=== PATIENT | female | born 1975 | race Caucasian/White ===

== ENCOUNTER 2016-12-14 12:51 | Inpatient (IN) | payer OTHER ==
[2016-12-14 15:16] VITALS: BMI 27.4
--- NOTE | 2016-12-14 16:57 | HP ---
CIWA Score - CIWA Score Nausea/Vomitin-Mild Nausea/No Vomiting Muscle Tremors: 4-Moderate,w/Arms Extend Anxiety: 4-Mod. Anxious/Guarded Agitation: 4-Moderately Restless Paroxysmal Sweats: 1-Minimal Palms Moist Orientation: 0-Oriented Tacttile Disturbances: 0-None Auditory Disturbances: 0-None Visual Disturbances: 0-None Headache: 0-None Present CIWA-Ar Total Score: 14 Admission ROS BHS - HPI Chief Complaint: withdrawal sx Allergies/Adverse Reactions: Allergies Allergy/AdvReac Type Severity Reaction Status Date / Time No Known Allergies Allergy Verified 12/14/16 16:59 History of Present Illness: 41 years old female with long history of alcohol nicotine cocaine dependence, has hypothyroid hypertension and bipolar ii in methadone program 80 mg daily is admitted to detox Exam Limitations: No Limitations - Ebola screening Have you traveled outside of the country in the last 21 days: No Have you had contact with anyone from an Ebola affected area: No Have you been sick,other than usual withdrawal symptoms: No Do you have a fever: No - Review of Systems Constitutional: Changes in sleep, Weight Stable EENT: reports: No Symptoms Reported Respiratory: reports: No Symptoms reported Cardiac: reports: No Symptoms Reported GI: reports: Nausea, Poor Fluid Intake, Vomiting, Indigestion, Abdominal cramping : reports: No Symptoms Reported Musculoskeletal: reports: Back Pain (since 2016) Integumentary: reports: No Symptoms Reported Neuro: reports: Tremors Endocrine: reports: Unexplained Weight Gain Hematology: reports: No Symptoms Reported Psychiatric: reports: Judgement Intact, Orientated x3, Anxious, Depressed Other Systems: Reviewed and Negative Patient History - Patient Medical History Hx Anemia: No Hx Asthma: No Hx Chronic Obstructive Pulmonary Disease (COPD): No Hx Cancer: No Hx Cardiac Disorders: No Hx Congestive Heart Failure: No Hx Hypertension: Yes Hx Hypercholesterolemia: No Hx Pacemaker: No HX Cerebrovascular Accident: No Hx Seizures: No Hx Dementia: No Hx Diabetes: No Hx Gastrointestinal Disorders: Yes Hx Liver Disease: No Hx Genitourinary Disorders: No Hx Sexually Transmitted Disorders: No Hx Renal Disease (ESRD): No Hx Thyroid Disease: Yes Hx Human Immunodeficiency Virus (HIV): No Hx Hepatitis C: Yes (treated) Hx Depression: No Hx Suicide Attempt: No Hx Bipolar Disorder: Yes Hx Schizophrenia: No - Patient Surgical History Past Surgical History: Yes Hx Neurologic Surgery: No Hx Cataract Extraction: No Hx Cardiac Surgery: No Hx Lung Surgery: No Hx Breast Surgery: No Hx Breast Biopsy: No Hx Abdominal Surgery: No Hx Appendectomy: No Hx Cholecystectomy: No Hx Genitourinary Surgery: No Hx Section: Yes (2001, 2002, 2003, 2005) Hx Orthopedic Surgery: No Hx Hysterectomy: No Anesthesia Reaction: No - PPD History Previous Implant?: Yes Documented Results: Negative w/proof Implanted On Prior [facility] Admission?: No PPD to be Administered?: Yes - Reproductive History Patient is a Female of Child Bearing Age (11 -55 yrs old): Yes Last Menstrual Period: 12/14/13 Patient : No - Smoking Cessation Smoking history: Current every day smoker Have you smoked in the past 12 months: Yes Aproximately how many cigarettes per day: 10 Cigars Per Day: 0 Hx Chewing Tobacco Use: No Initiated information on smoking cessation: Yes 'Breaking Loose' booklet given: 12/14/16 - Substance & Tx. History Hx Alcohol Use: Yes Hx Substance Use: Yes Substance Use Type: Alcohol, Cocaine, Heroin Hx Substance Use Treatment: Yes (2014) - Substances Abused Alcohol Route: Oral Frequency: Daily Amount used: 18mgf21 +pint volka Age of first use: 17 Date of Last Use: 12/13/16 Family Disease History - Family Disease History Family Disease History: Diabetes: Mother, Other: Father (no contact), Brother ( no brother) Admission Physical Exam BHS - Vital Signs Vital Signs: Vital Signs - 24 hr 12/14/16 15:03 Temperature 95.5 F L Pulse Rate 80 Respiratory 20 Rate Blood Pressure 117/65 - Physical General Appearance: Yes: Nourished, Appropriately Dressed, Mild Distress, Tremorous, Irritable, Sweating, Anxious HEENTM: Yes: Hearing grossly Normal, Normal ENT Inspection, Normocephalic, Normal Voice Respiratory: Yes: Chest Non-Tender, Lungs Clear, Normal Breath Sounds, No Respiratory Distress, No Accessory Muscle Use Neck: Yes: Supple, Trachea in good position Breast: Yes: Breasts Symetrical Cardiology: Yes: Regular Rhythm, Regular Rate, S1, S2 Abdominal: Yes: Non Tender, Soft, Increased Bowel Sounds Genitourinary: Yes: Within Normal Limits Back: Yes: Normal Inspection, Other (chronic back pain) Musculoskeletal: Yes: full range of Motion, Gait Steady, Back pain Extremities: Yes: Normal Inspection, Normal Range of Motion, Non-Tender, Tremors Neurological: Yes: Fully Oriented, Alert, Motor Strength 5/5, Normal Response, Depressed Affect Integumentary: Yes: Warm Lymphatic: Yes: Within Normal Limits - Diagnostic (1) Alcohol dependence with uncomplicated withdrawal Current Visit: Yes Status: Acute (2) Cocaine dependence, uncomplicated Current Visit: Yes Status: Chronic (3) Hypertension Current Visit: Yes Status: Chronic Qualifiers: Hypertension type: essential hypertension Qualified Code(s): I10 - Essential (primary) hypertension; I10 - Essential (primary) hypertension; I10 - Essential (primary) hypertension (4) Hypothyroid Current Visit: Yes Status: Chronic Qualifiers: Hypothyroidism type: acquired Qualified Code(s): E03.9 - Hypothyroidism, unspecified; E03.9 - Hypothyroidism, unspecified; E03.9 - Hypothyroidism, unspecified (5) GERD (gastroesophageal reflux disease) Current Visit: Yes Status: Chronic Qualifiers: Esophagitis presence: without esophagitis Qualified Code(s): K21.9 - Gastro-esophageal reflux disease without esophagitis; K21.9 - Gastro- esophageal reflux disease without esophagitis; K21.9 - Gastro-esophageal reflux disease without esophagitis (6) Chronic back pain Current Visit: Yes Status: Chronic Qualifiers: Back pain location: low back pain Back pain laterality: bilateral Sciatica presence: without sciatica Qualified Code(s): M54.5 - Low back pain; M54.5 - Low back pain; G89.29 - Other chronic pain; G89.29 - Other chronic pain (7) Bipolar II disorder Current Visit: Yes Status: Suspected (8) Hepatitis C carrier Current Visit: Yes Status: Resolved Cleared for Admission [facility] - Detox or Rehab [facility] Level of Care: Medically Managed Detox Regimen/Protocol: Librium [facility] Breath Alcohol Content Breath Alcohol Content: 0 Urine Pregancy Test - Result Urine Test Results: Negative- NO Line Present Urine Drug Screen - Results Drug Screen Negative: No Urine Drug Screen Results: RYAN-Cocaine, MTD-Methadone, TCA-Tricyclic Antidepress
[2016-12-14] MEDS ORDERED: guaiFENesin/D-METHORPHAN HB 10 ML UNIT-DOSE CUPS PO PRN (17:07)
[2016-12-14] MEDS ORDERED: MAGNESIUM CITRATE 300 ML BOTTLE PO PRN (17:07)
[2016-12-14] MEDS ORDERED: MAG HYDROX/AL HYDROX/SIMETH 30 ML UNIT-DOSE CUP PO PRN (17:07)
[2016-12-14] MEDS ORDERED: MAGNESIUM HYDROX 2400MG/30ML ORAL SUSPENSION 30 ML CUP PO PRN (17:07)
[2016-12-14] MEDS ORDERED: ACETAMINOPHEN 325 MG TABLET (FP) PO PRN (17:07)
[2016-12-14] MEDS ORDERED: P-EPHED 60MG/TRIPROLIDI 2.5MG TABLET PO PRN (17:07)
[2016-12-14] MEDS ORDERED: NICOTINE POLACRILEX 2 MG GUM BC PRN (17:07)
[2016-12-14] MEDS ORDERED: diphenhydrAMINE HCL 50 MG CAPSULE PO PRN (17:07)
[2016-12-14] MEDS ORDERED: MENTHOL/PHENOL 1 EACH UD MM PRN (17:07)
[2016-12-14] MEDS ORDERED: LOPERAMIDE HCL 2 MG CAPSULE PO PRN (17:07)
[2016-12-14] MEDS: chlordiazePOXIDE HCL 25 MG CAPSULE PO PRN (20:09)
[2016-12-14 21:18] LABS: URINE APPEARANCE SLCLOUDY; URINE BILIRUBIN NEGATIVE (NEGATIVE); URINE BLOOD NEGATIVE (NEGATIVE); URINE COLOR YELLOW; URINE GLUCOSE (UA) NEGATIVE (NEGATIVE); URINE KETONE TRACE (NEGATIVE); URINE NITRITE NEGATIVE (NEGATIVE); URINE UROBILINOGEN NEGATIVE mg/dL (0.2-1.0)
[2016-12-14 21:24] LABS: URINE PROTEIN 1+ (NEGATIVE)
[2016-12-14 21:28] LABS: URINE HYALINE CAST 21 /lpf; URINE MUCUS FEW; URINE RBC <1 /hpf (0-3); URINE WBC 1 /hpf (3-5)
[2016-12-14 22:23] LABS: URINE LEUK ESTERASE Negative (NEGATIVE)
[2016-12-14] MEDS: LIDOCAINE PATCH REMOVAL MC SCH (23:55)
[2016-12-14] MEDS: chlordiazePOXIDE HCL 25 MG CAPSULE PO SCH (23:55)
[2016-12-14] MEDS: THIAMINE HCL 100 MG TABLET (FP) PO SCH (23:56)
[2016-12-14] MEDS: RANITIDINE HCL 150 MG TABLET (FP) PO SCH (23:56)
[2016-12-15] MEDS: chlordiazePOXIDE HCL 25 MG CAPSULE PO SCH ×4 (05:42→22:41)
--- NOTE | 2016-12-15 07:35 | CONSULT ---
[facility] Psychiatric Consult - Data Date of interview: 12/15/16 Admission source: [facility] Identifying data: This is 41 years old female with psychiatric hospitalization history intoxicated wioth: Alcohol, Cocaine, Methadone Substance Abuse History: Urine Drug Screen Results: RYNA-Cocaine, MTD-Methadone, TCA-Tricyclic AntidepressSmoking history: Current every day smoker. Have you smoked in the past 12 months: Yes. Aproximately how many cigarettes per day: 10. Cigars Per Day: 0. Hx Chewing Tobacco Use: No. Initiated information on smoking cessation: Yes. 'Breaking Loose' booklet given: 12/14/16. - Substance & Tx. History. Hx Alcohol Use: Yes. Hx Substance Use: Yes. Substance Use Type : Alcohol, Cocaine, Heroin. Hx Substance Use Treatment: Yes (2014). - Substances Abused. Alcohol. Route: Oral. Frequency: Daily. Amount used: [id number] +pint volka. Age of first use: 17. Date of Last Use: 12/13/16 Medical History: LBP, GERD, HTN, Hypothyroiditis, HepC+ Psychiatric History: Patint reports history of depression and anxiety, reports unclear psychoiatric admsision on 2015 at [facility], reports no medications taking prior to admission Physical/Sexual Abuse/Trauma History: Denies Additional Comment: Drug Screen Negative: No. Urine Drug Screen Results: RYAN- Cocaine, MTD-Methadone, TCA-Tricyclic Antidepress Mental Status Exam - Mental Status Exam Alert and Oriented to: Person Cognitive Function: Fair Patient Appearance: Unkempt Mood: Sad Affect: Flat Patient Behavior: Sedated Speech Pattern: Delayed Voice Loudness: Mildly Soft/Quiet Thought Process: Circumstantial Thought Disorder: Being Controlled Hallucinations: Denies Suicidal Ideation: Denies Homicidal Ideation: Denies Insight/Judgement: Fair Sleep: Difficulty falling asleep Appetite: Weight loss Muscle strength/Tone: Normal Gait/Station: Shuffling Additional Comments: Observation. Detox Unit Care Protocol
[2016-12-15] MEDS: LEVOTHYROXINE NA 100 MCG TABLET (FP) PO SCH (07:41)
[2016-12-15] MEDS ORDERED: METHADONE HCL 40 MG DISPERSABLE TABLET PO ONE (08:28)
[2016-12-15 09:57] LABS: MCHC 33.3 g/dl (32.0-36.0); MEAN CELL VOLUME 93.2 fl (80-96); MEAN PLT VOLUME 8.8 fl (7.5-11.1); PLATELET COUNT 187 K/MM3 (134-434); RDW 14.2 % (11.6-15.6); WHITE BLOOD COUNT 3.5 K/mm3 (4.0-10.0)
[2016-12-15 10:07] LABS: ALBUMIN 3.4 g/dl (3.4-5.0); ANION GAP 7 (8-16); CALCIUM 8.4 mg/dL (8.5-10.1); CO2 28 mmol/L (21-32); GLUCOSE,RANDOM 86 mg/dL (74-106)
[2016-12-15 10:20] LABS: ALK PHOS 80 U/L (45-117); BILIRUBIN,TOTAL 0.4 mg/dL (0.2-1.0); CREATININE 1.1 mg/dL (0.55-1.02); SGOT/AST 13 U/L (15-37); SGPT/ALT 10 U/L (12-78); TOT PROT 7.2 g/dl (6.4-8.2)
[2016-12-15] MEDS: HYDROCHLOROTHIAZIDE 25 MG TABLET (FP) PO SCH (10:28)
[2016-12-15] MEDS: RANITIDINE HCL 150 MG TABLET (FP) PO SCH ×2 (10:29→22:41)
[2016-12-15] MEDS: PRENATAL VITAMINS W/ FOLIC ACID TABLET (FP) PO SCH (10:29)
[2016-12-15] MEDS: NICOTINE 14 MG/24 HOURS TOPICAL PATCH TD SCH (10:29)
[2016-12-15] MEDS: LIDOCAINE 5% TOPICAL PATCH TP SCH (10:33)
[2016-12-15] MEDS: CYCLOBENZAPRINE HCL 10 MG TABLET (FP) PO PRN (10:56)
--- NOTE | 2016-12-15 11:23 | PN ---
S CIWA - CIWA Score Nausea/Vomitin Muscle Tremors: 3 Anxiety: 3 Agitation: 3 Paroxysmal Sweats: 1-Minimal Palms Moist Orientation: 0-Oriented Tacttile Disturbances: 1-Very Mild Itch/Numbness Auditory Disturbances: 1-Very Mild Visual Disturbances: 0-None Headache: 2-Mild CIWA-Ar Total Score: 17 BHS Progress Note (SOAP) Subjective: alert,irritable,anxious,interrupted sleep,tremor,pain in the body and back Objective: 12/15/16 11:22 Vital Signs Temperature 95.9 F L 12/15/16 10:00 Pulse Rate 87 12/15/16 10:00 Respiratory Rate 16 12/15/16 10:00 Blood Pressure 115/78 12/15/16 10:00 O2 Sat by Pulse Oximetry (%) ekg nsr,normal ecg Laboratory Last Values WBC 3.5 K/mm3 (4.0-10.0) L 12/15/16 07:15 RBC 4.07 M/mm3 (3.60-5.2) 12/15/16 07:15 Hgb 12.6 GM/dL (10.7-15.3) 12/15/16 07:15 Hct 37.9 % (32.4-45.2) 12/15/16 07:15 MCV 93.2 fl (80-96) 12/15/16 07:15 MCH 31.0 pg (25.7-33.7) 12/15/16 07:15 MCHC 33.3 g/dl (32.0-36.0) 12/15/16 07:15 RDW 14.2 % (11.6-15.6) 12/15/16 07:15 Plt Count 187 K/MM3 (134-434) 12/15/16 07:15 MPV 8.8 fl (7.5-11.1) 12/15/16 07:15 Sodium 141 mmol/L (136-145) 12/15/16 07:15 Potassium 3.8 mmol/L (3.5-5.1) 12/15/16 07:15 Chloride 106 mmol/L (98-107) 12/15/16 07:15 Carbon Dioxide 28 mmol/L (21-32) 12/15/16 07:15 Anion Gap 7 (8-16) L 12/15/16 07:15 BUN 17 mg/dL (7-18) 12/15/16 07:15 Creatinine 1.1 mg/dL (0.55-1.02) H 12/15/16 07:15 Creat Clearance w eGFR 54.21 (>60) 12/15/16 07:15 Random Glucose 86 mg/dL (74-106) 12/15/16 07:15 Calcium 8.4 mg/dL (8.5-10.1) L 12/15/16 07:15 Total Bilirubin 0.4 mg/dL (0.2-1.0) 12/15/16 07:15 AST 13 U/L (15-37) L 12/15/16 07:15 ALT 10 U/L (12-78) L 12/15/16 07:15 Alkaline Phosphatase 80 U/L (45-117) 12/15/16 07:15 Total Protein 7.2 g/dl (6.4-8.2) 12/15/16 07:15 Albumin 3.4 g/dl (3.4-5.0) 12/15/16 07:15 TSH 17.40 uIU/ml (0.358-3.74) H 12/15/16 07:15 Urine Color Yellow 12/14/16 20:45 Urine Appearance Slcloudy 12/14/16 20:45 Urine pH 5.0 (5.0-8.0) 12/14/16 20:45 Ur Specific [place] 1.020 (1.005-1.025) 12/14/16 20:45 Urine Protein 1+ (NEGATIVE) H 12/14/16 20:45 Urine Glucose (UA) Negative (NEGATIVE) 12/14/16 20:45 Urine Ketones Trace (NEGATIVE) H 12/14/16 20:45 Urine Blood Negative (NEGATIVE) 12/14/16 20:45 Urine Nitrite Negative (NEGATIVE) 12/14/16 20:45 Urine Bilirubin Negative (NEGATIVE) 12/14/16 20:45 Urine Urobilinogen Negative mg/dL (0.2-1.0) 12/14/16 20:45 Ur Leukocyte Esterase Negative (NEGATIVE) 12/14/16 20:45 Urine RBC <1 /hpf (0-3) 12/14/16 20:45 Urine WBC 1 /hpf (3-5) 12/14/16 20:45 Ur Epithelial Cells Rare /hpf (FEW) 12/14/16 20:45 Hyaline Casts 21 /lpf 12/14/16 20:45 Urine Mucus Few 12/14/16 20:45 RPR Titer Nonreactive (NONREACTIVE) 12/15/16 07:15 Assessment: 12/15/16 11:23 withdrawal symptom Plan: continue detox
--- NOTE | 2016-12-15 13:24 | EKG ---
Test Reason : Blood Pressure : / mmHG Vent. Rate : 068 BPM Atrial Rate : 068 BPM P-R Int : 184 ms QRS Dur : 092 ms QT Int : 434 ms P-R-T Axes : 067 056 084 degrees QTc Int : 461 ms NORMAL SINUS RHYTHM NORMAL ECG NO PREVIOUS ECGS AVAILABLE Confirmed by TIN CAMARGO, ARLENE ([id number]) on 12/15/2016 1:23:42 PM Referred By: Confirmed By:ARLENE CASTLE MD
[2016-12-15] MEDS: chlordiazePOXIDE HCL 25 MG CAPSULE PO PRN (20:17)
[2016-12-15] MEDS: THIAMINE HCL 100 MG TABLET (FP) PO SCH (22:41)
[2016-12-15] MEDS: LIDOCAINE PATCH REMOVAL MC SCH (22:55)
[2016-12-16] MEDS: chlordiazePOXIDE HCL 25 MG CAPSULE PO SCH ×3 (06:21→17:55)
[2016-12-16] MEDS: LEVOTHYROXINE NA 100 MCG TABLET (FP) PO SCH (06:22)
[2016-12-16] MEDS: METHADONE HCL 40 MG DISPERSABLE TABLET PO SCH (06:22)
[2016-12-16] MEDS: BACLOFEN 10 MG TABLET (FP) PO PRN ×2 (06:24→22:48)
[2016-12-16] MEDS ORDERED: PANTOPRAZOLE 40 MG TABLET (FP) PO SCH (10:00)
--- NOTE | 2016-12-16 10:11 | PN ---
S CIWA - CIWA Score Nausea/Vomitin Muscle Tremors: 3 Anxiety: 3 Agitation: 3 Paroxysmal Sweats: 1-Minimal Palms Moist Orientation: 0-Oriented Tacttile Disturbances: 1-Very Mild Itch/Numbness Auditory Disturbances: 1-Very Mild Visual Disturbances: 0-None Headache: 2-Mild CIWA-Ar Total Score: 17 BHS Progress Note (SOAP) Subjective: alert,irritable,anxious,interrupted sleep,tremor,pain in the body Objective: 12/16/16 10:09 Vital Signs Temperature 97.0 F L 12/16/16 09:55 Pulse Rate 80 12/16/16 09:55 Respiratory Rate 18 12/16/16 09:55 Blood Pressure 125/89 12/16/16 09:55 O2 Sat by Pulse Oximetry (%) 12/16/16 10:09 Laboratory Last Values WBC 3.5 K/mm3 (4.0-10.0) L 12/15/16 07:15 RBC 4.07 M/mm3 (3.60-5.2) 12/15/16 07:15 Hgb 12.6 GM/dL (10.7-15.3) 12/15/16 07:15 Hct 37.9 % (32.4-45.2) 12/15/16 07:15 MCV 93.2 fl (80-96) 12/15/16 07:15 MCH 31.0 pg (25.7-33.7) 12/15/16 07:15 MCHC 33.3 g/dl (32.0-36.0) 12/15/16 07:15 RDW 14.2 % (11.6-15.6) 12/15/16 07:15 Plt Count 187 K/MM3 (134-434) 12/15/16 07:15 MPV 8.8 fl (7.5-11.1) 12/15/16 07:15 Sodium 141 mmol/L (136-145) 12/15/16 07:15 Potassium 3.8 mmol/L (3.5-5.1) 12/15/16 07:15 Chloride 106 mmol/L (98-107) 12/15/16 07:15 Carbon Dioxide 28 mmol/L (21-32) 12/15/16 07:15 Anion Gap 7 (8-16) L 12/15/16 07:15 BUN 17 mg/dL (7-18) 12/15/16 07:15 Creatinine 1.1 mg/dL (0.55-1.02) H 12/15/16 07:15 Creat Clearance w eGFR 54.21 (>60) 12/15/16 07:15 Random Glucose 86 mg/dL (74-106) 12/15/16 07:15 Calcium 8.4 mg/dL (8.5-10.1) L 12/15/16 07:15 Total Bilirubin 0.4 mg/dL (0.2-1.0) 12/15/16 07:15 AST 13 U/L (15-37) L 12/15/16 07:15 ALT 10 U/L (12-78) L 12/15/16 07:15 Alkaline Phosphatase 80 U/L (45-117) 12/15/16 07:15 Total Protein 7.2 g/dl (6.4-8.2) 12/15/16 07:15 Albumin 3.4 g/dl (3.4-5.0) 12/15/16 07:15 TSH 17.40 uIU/ml (0.358-3.74) H 12/15/16 07:15 Urine Color Yellow 12/14/16 20:45 Urine Appearance Slcloudy 12/14/16 20:45 Urine pH 5.0 (5.0-8.0) 12/14/16 20:45 Ur Specific [place] 1.020 (1.005-1.025) 12/14/16 20:45 Urine Protein 1+ (NEGATIVE) H 12/14/16 20:45 Urine Glucose (UA) Negative (NEGATIVE) 12/14/16 20:45 Urine Ketones Trace (NEGATIVE) H 12/14/16 20:45 Urine Blood Negative (NEGATIVE) 12/14/16 20:45 Urine Nitrite Negative (NEGATIVE) 12/14/16 20:45 Urine Bilirubin Negative (NEGATIVE) 12/14/16 20:45 Urine Urobilinogen Negative mg/dL (0.2-1.0) 12/14/16 20:45 Ur Leukocyte Esterase Negative (NEGATIVE) 12/14/16 20:45 Urine RBC <1 /hpf (0-3) 12/14/16 20:45 Urine WBC 1 /hpf (3-5) 12/14/16 20:45 Ur Epithelial Cells Rare /hpf (FEW) 12/14/16 20:45 Hyaline Casts 21 /lpf 12/14/16 20:45 Urine Mucus Few 12/14/16 20:45 RPR Titer Nonreactive (NONREACTIVE) 12/15/16 07:15 Hepatitis C Antibody >11.0 s/co ratio (0.0-0.9) H 12/15/16 07:15 patient had hepatitis c treated with [facility] 2 years ago history Assessment: 12/16/16 10:11 withdrawal symptom Plan: continue detox
[2016-12-16] MEDS: CYCLOBENZAPRINE HCL 10 MG TABLET (FP) PO PRN (10:25)
[2016-12-16] MEDS: HYDROCHLOROTHIAZIDE 25 MG TABLET (FP) PO SCH (10:25)
[2016-12-16] MEDS: PRENATAL VITAMINS W/ FOLIC ACID TABLET (FP) PO SCH (10:25)
[2016-12-16] MEDS: RANITIDINE HCL 150 MG TABLET (FP) PO SCH ×2 (10:25→22:44)
[2016-12-16] MEDS: LISINOPRIL 20 MG TABLET (FP) PO SCH (10:27)
[2016-12-16] MEDS: PROPRANOLOL HCL 20 MG TABLET PO SCH ×2 (10:27→22:45)
[2016-12-16] MEDS: NICOTINE 14 MG/24 HOURS TOPICAL PATCH TD SCH (13:25)
[2016-12-16] MEDS: LIDOCAINE 5% TOPICAL PATCH TP SCH (13:25)
[2016-12-16] MEDS: GABAPENTIN 300 MG CAPSULE (FP) PO SCH ×2 (15:18→22:44)
[2016-12-16] MEDS: THIAMINE HCL 100 MG TABLET (FP) PO SCH (22:44)
[2016-12-16] MEDS: LIDOCAINE PATCH REMOVAL MC SCH (22:45)
[2016-12-16] MEDS: chlordiazePOXIDE 5 MG CAPSULE PO SCH (23:47)
[2016-12-17] MEDS: GABAPENTIN 300 MG CAPSULE (FP) PO SCH ×3 (06:18→23:05)
[2016-12-17] MEDS: LEVOTHYROXINE NA 100 MCG TABLET (FP) PO SCH (06:18)
[2016-12-17] MEDS: CYCLOBENZAPRINE HCL 10 MG TABLET (FP) PO PRN (06:18)
[2016-12-17] MEDS: METHADONE HCL 40 MG DISPERSABLE TABLET PO SCH (06:18)
[2016-12-17] MEDS: chlordiazePOXIDE 5 MG CAPSULE PO SCH ×3 (06:18→16:41)
[2016-12-17] MEDS ORDERED: NALOXONE HCL 0.4 MG/ML VIAL IM ONE ×3 (09:20→13:18)
--- NOTE | 2016-12-17 09:47 | PN ---
S Progress Note (SOAP) Subjective: PATIENT HAS ALTER MENTAL STATUS,PUPIL CONSTRICT,NO RESPOND TO VERBAL STIMULI, SPONTANEOU LABOUR BEATHING NARCAN 0.4 MG IM GIVEN RESPONDED ALERT,SITING UP,AND ABLE TO AMBULATE REFUSED THE SECOND DOSE OF NARCAN Objective: 12/17/16 10:25 BP 139/87,076,R20 Assessment: 12/17/16 10:26 ANXIOUS Plan: CLOSE MONITORING
--- NOTE | 2016-12-17 13:41 | PN ---
[facility] Progress Note Note: patient has alter mental status, bp 115/73.p77r 20,t 98 will give narcan 0.4 mg im oxygen by nasal canula 4 l min hold medication close monitoring with vital signs monitoring patient is alert,oriented after narcan
[2016-12-17] MEDS: PRENATAL VITAMINS W/ FOLIC ACID TABLET (FP) PO SCH (14:04)
[2016-12-17] MEDS: LISINOPRIL 20 MG TABLET (FP) PO SCH (14:05)
[2016-12-17] MEDS: PROPRANOLOL HCL 20 MG TABLET PO SCH ×2 (14:05→23:02)
[2016-12-17] MEDS: HYDROCHLOROTHIAZIDE 25 MG TABLET (FP) PO SCH (14:06)
[2016-12-17] MEDS: NICOTINE 14 MG/24 HOURS TOPICAL PATCH TD SCH (14:27)
[2016-12-17] MEDS: LIDOCAINE 5% TOPICAL PATCH TP SCH (14:27)
[2016-12-17] MEDS: RANITIDINE HCL 150 MG TABLET (FP) PO SCH ×2 (14:28→23:06)
[2016-12-17] MEDS: LIDOCAINE PATCH REMOVAL MC SCH (23:05)
[2016-12-17] MEDS: chlordiazePOXIDE HCL 10 MG CAPSULE PO SCH (23:05)
[2016-12-17] MEDS: THIAMINE HCL 100 MG TABLET (FP) PO SCH (23:06)
[2016-12-18] MEDS: chlordiazePOXIDE HCL 10 MG CAPSULE PO SCH (05:55)
[2016-12-18 06:07] VITALS: BP 126/80; PULSE 68; TEMP 97.9
[2016-12-18] MEDS: METHADONE HCL 40 MG DISPERSABLE TABLET PO SCH (07:25)
[2016-12-18] MEDS: GABAPENTIN 300 MG CAPSULE (FP) PO SCH (07:25)
[2016-12-18] MEDS: LEVOTHYROXINE NA 100 MCG TABLET (FP) PO SCH (07:25)
--- NOTE | 2016-12-18 08:15 | DS ---
[facility] Detox Discharge Summary Admission Date: 12/14/16 Discharge Date: 12/18/16 - History Present History: Alcohol Dependence, Cocaine Dependence, MMTP Additional Comments: FOLLOW UP WITH AFTER CARE PROGRAM ARRANGEMENT Pertinent Past History: HYPERTENSION HYPOTHYROIDISM GERD CHRONIC LOW BACK PAIN HEPATITIS C TREATED MMTP BIPOLAR DISORDER - Physical Exam Results Vital Signs: Vital Signs Temperature 97.9 F 12/18/16 06:00 Pulse Rate 68 12/18/16 06:00 Respiratory Rate 18 12/18/16 06:00 Blood Pressure 126/80 12/18/16 06:00 O2 Sat by Pulse Oximetry (%) - Treatment Hospital Course: Detox Protocol Followed, Detoxed Safely, Responded well, Discharged Condition Good, Rehab Referral Accepted Patient has Accepted a Rehab Referral to: [facility] - Medication Discharge Medications: Ambulatory Orders Hydrochlorothiazide [Hctz -] 25 mg PO DAILY 12/14/16 Levothyroxine [Synthroid -] 200 mcg PO DAILY 12/14/16 - Diagnosis (1) Alcohol dependence with uncomplicated withdrawal Status: Acute (2) Chronic back pain Status: Chronic Qualifiers: Back pain location: low back pain Back pain laterality: bilateral Sciatica presence: without sciatica Qualified Code(s): M54.5 - Low back pain; M54.5 - Low back pain; G89.29 - Other chronic pain; G89.29 - Other chronic pain (3) Cocaine dependence, uncomplicated Status: Chronic (4) GERD (gastroesophageal reflux disease) Status: Chronic Qualifiers: Esophagitis presence: without esophagitis Qualified Code(s): K21.9 - Gastro-esophageal reflux disease without esophagitis; K21.9 - Gastro- esophageal reflux disease without esophagitis; K21.9 - Gastro-esophageal reflux disease without esophagitis (5) Hypertension Status: Chronic Qualifiers: Hypertension type: essential hypertension Qualified Code(s): I10 - Essential (primary) hypertension; I10 - Essential (primary) hypertension; I10 - Essential (primary) hypertension (6) Hypothyroid Status: Chronic Qualifiers: Hypothyroidism type: acquired Qualified Code(s): E03.9 - Hypothyroidism, unspecified; E03.9 - Hypothyroidism, unspecified; E03.9 - Hypothyroidism, unspecified (7) Bipolar II disorder Status: Suspected (8) Hepatitis C Status: Acute - AMA Did Patient Leave Against Medical Advice: No
== END 2016-12-18 07:34 | disposition home or self-care (01) | DRG 774 ==
LOC: YASAS 12:51 → Y6N 17:32
PROVIDERS: ADMIT Internal Medicine; ATTEND Internal Medicine
PROC: HZ2ZZZZ Detoxification Services for Substance Abuse Treatment (ICD-10-PCS; principal; 2016-12-14)
DX: F10.230 Alcohol dependence with withdrawal, uncomplicated (principal); F14.20 Cocaine dependence, uncomplicated; F31.81 Bipolar II disorder; I10 Essential (primary) hypertension; E03.9 Hypothyroidism, unspecified; B18.2 Chronic viral hepatitis C; M54.5 Low back pain; G89.29 Other chronic pain
CPT/HCPCS: 36415; 80053; 81003; 81015; 84443; 85027; 86593; 86803; 87522; 93005; 93010; J0475

== ENCOUNTER 2021-05-29 14:55 | Inpatient (IN) | payer OTHER ==
[2021-05-29 18:54] VITALS: BMI 33.6
[2021-05-29] MEDS ORDERED: IBUPROFEN 400 MG TABLET (FP) PO PRN (20:41)
[2021-05-29] MEDS ORDERED: MAGNESIUM CITRATE 300 ML BOTTLE PO PRN (20:41)
[2021-05-29] MEDS ORDERED: BISMUTH SUBSALICYLATE 524 MG/30 ML PO PRN (20:41)
[2021-05-29] MEDS ORDERED: ACETAMINOPHEN 325 MG TABLET (FP) PO PRN ×2 (20:41)
[2021-05-29] MEDS ORDERED: LOPERAMIDE HCL 2 MG CAPSULE PO PRN (20:41)
[2021-05-29] MEDS ORDERED: DICYCLOMINE HCL 10 MG CAPSULE PO PRN (20:41)
[2021-05-29] MEDS ORDERED: BENZOCAINE/MENTHOL (CHLORASEPTIC ) LOZENGE MM PRN (20:41)
[2021-05-29] MEDS ORDERED: ONDANSETRON *ODT* 4 MG TABLET SL PRN (20:41)
[2021-05-29] MEDS ORDERED: MAGNESIUM HYDROX 2400MG/30ML ORAL SUSPENSION 30 ML CUP PO PRN (20:41)
[2021-05-29] MEDS ORDERED: chlordiazePOXIDE HCL 25 MG CAPSULE PO PRN (20:41)
[2021-05-29] MEDS ORDERED: NICOTINE POLACRILEX 2 MG GUM BUC PRN (20:41)
[2021-05-29] MEDS ORDERED: MAG HYDROX/AL HYDROX/SIMETH 30 ML UNIT-DOSE CUP PO PRN (20:41)
[2021-05-29] MEDS ORDERED: ALBUTEROL SO4 HFA INHALER IH PRN (22:00)
[2021-05-29] MEDS ORDERED: chlordiazePOXIDE HCL 25 MG CAPSULE ONE (23:18)
[2021-05-29] MEDS: MELATONIN 5 MG TABLETS PO SCH (23:20)
[2021-05-29] MEDS: chlordiazePOXIDE HCL 25 MG CAPSULE PO SCH (23:21)
[2021-05-29] MEDS: THIAMINE HCL 100 MG TABLET (FP) PO SCH (23:22)
[2021-05-29] MEDS: GABAPENTIN 300 MG CAPSULE PO SCH (23:29)
[2021-05-29] MEDS: LIDOCAINE PATCH REMOVAL MC SCH (23:29)
[2021-05-30] MEDS: CEPHALEXIN MONOHYDRATE 500 MG CAPSULE (UD) PO SCH ×4 (01:00→18:26)
[2021-05-30] MEDS: GABAPENTIN 300 MG CAPSULE PO SCH ×3 (06:00→22:18)
[2021-05-30] MEDS: chlordiazePOXIDE HCL 25 MG CAPSULE PO SCH ×4 (06:00→22:19)
[2021-05-30] MEDS ORDERED: PATIENT'S OWN MEDICATION (NON-FORMULARY) (Lisinopril/Hydrochlorothiazide [Lisinopril-Hctz PO SCH (10:00)
[2021-05-30] MEDS ORDERED: methaDONE HCL 10 MG TABLET PO SCH (10:00)
[2021-05-30] MEDS: LIDOCAINE 5% TOPICAL PATCH TP SCH (10:18)
[2021-05-30] MEDS: CLOPIDOGREL BISULFATE 75 MG TABLET (FP) PO SCH (10:19)
[2021-05-30] MEDS: PRENATAL VITAMINS W/ FOLIC ACID TABLET (FP) PO SCH (10:19)
[2021-05-30] MEDS ORDERED: PNEUMOC 13-VAL CONJ-DIP CRM/PF 0.5 ML DISP.SYRIN IM ONE (12:00)
[2021-05-30] MEDS: LEVOTHYROXINE NA 200 MCG TABLET PO SCH (13:10)
[2021-05-30] MEDS: CALCIUM 500MG/VIT-D 200 UNITS COMBO TABLET (FP) PO SCH (13:11)
[2021-05-30] MEDS: PARoxetine HCL 10 MG TABLET PO SCH (13:11)
[2021-05-30 13:19] LABS: CALCIUM 8.7 mg/dL (8.5-10.1)
[2021-05-30 13:20] LABS: ALBUMIN 3.1 g/dl (3.4-5.0); BLOOD UREA NITROGEN 19.5 mg/dL (7-18)
[2021-05-30] MEDS ORDERED: methaDONE HCL 10 MG TABLET ONE (13:22)
[2021-05-30] MEDS ORDERED: methaDONE HCL 40 MG DISPERSABLE TABLET ONE (13:23)
[2021-05-30 13:24] LABS: TOT PROT 6.7 g/dl (6.4-8.2)
[2021-05-30] MEDS: methaDONE 80 MG, methaDONE 10 MG PO SCH (13:25)
[2021-05-30 13:30] LABS: BILIRUBIN,TOTAL 0.2 mg/dL (0.2-1)
[2021-05-30 13:36] LABS: HEMATOCRIT 40.3 % (32.4-45.2); HEMOGLOBIN 13.3 GM/dL (10.7-15.3); MCH 31.3 pg (25.7-33.7); MCHC 33.1 g/dl (32.0-36.0); MEAN CELL VOLUME 94.8 fl (80-96); PLATELET COUNT 182 10^3/uL (134-434); RBC 4.26 M/mm3 (3.60-5.2); RDW 14.7 % (11.6-15.6); WHITE BLOOD COUNT 4.1 K/mm3 (4.0-10.0)
[2021-05-30] MEDS: NICOTINE 10 MG CARTRIDGE (INHALER) IH PRN (13:39)
[2021-05-30] MEDS: THIAMINE HCL 100 MG TABLET (FP) PO SCH (22:19)
[2021-05-30] MEDS: MELATONIN 5 MG TABLETS PO SCH (22:19)
[2021-05-30] MEDS: LURASIDONE HCL 20 MG TABLET PO SCH (22:21)
[2021-05-30] MEDS: LIDOCAINE PATCH REMOVAL MC SCH (22:57)
[2021-05-31] MEDS: CEPHALEXIN MONOHYDRATE 500 MG CAPSULE (UD) PO SCH ×5 (00:27→18:03)
[2021-05-31] MEDS ORDERED: methaDONE HCL 40 MG DISPERSABLE TABLET ONE (04:58)
[2021-05-31] MEDS ORDERED: methaDONE HCL 10 MG TABLET ONE (04:58)
[2021-05-31] MEDS: GABAPENTIN 300 MG CAPSULE PO SCH ×3 (06:36→22:35)
[2021-05-31] MEDS: chlordiazePOXIDE HCL 25 MG CAPSULE PO SCH ×4 (06:37→22:35)
[2021-05-31] MEDS: methaDONE 80 MG, methaDONE 10 MG PO SCH (06:37)
[2021-05-31] MEDS: LEVOTHYROXINE NA 200 MCG TABLET PO SCH (07:41)
[2021-05-31] MEDS: CLOPIDOGREL BISULFATE 75 MG TABLET (FP) PO SCH (10:26)
[2021-05-31] MEDS: PRENATAL VITAMINS W/ FOLIC ACID TABLET (FP) PO SCH (10:26)
[2021-05-31] MEDS: CALCIUM 500MG/VIT-D 200 UNITS COMBO TABLET (FP) PO SCH (10:26)
[2021-05-31] MEDS: PARoxetine HCL 10 MG TABLET PO SCH (10:27)
[2021-05-31] MEDS: LIDOCAINE 5% TOPICAL PATCH TP SCH (10:28)
[2021-05-31] MEDS: LURASIDONE HCL 20 MG TABLET PO SCH (18:04)
[2021-05-31] MEDS: LIDOCAINE PATCH REMOVAL MC SCH (22:35)
[2021-05-31] MEDS: MELATONIN 5 MG TABLETS PO SCH (22:35)
[2021-05-31] MEDS: THIAMINE HCL 100 MG TABLET (FP) PO SCH (22:35)
[2021-06-01] MEDS ORDERED: chlordiazePOXIDE HCL 10 MG CAPSULE PO PRN
[2021-06-01] MEDS ORDERED: methaDONE HCL 10 MG TABLET ONE (05:32)
[2021-06-01] MEDS ORDERED: methaDONE HCL 40 MG DISPERSABLE TABLET ONE (05:32)
[2021-06-01] MEDS: methaDONE 80 MG, methaDONE 10 MG PO SCH (07:02)
[2021-06-01] MEDS: chlordiazePOXIDE HCL 10 MG CAPSULE PO SCH ×2 (07:03→11:56)
[2021-06-01] MEDS: GABAPENTIN 300 MG CAPSULE PO SCH ×3 (07:03→22:41)
[2021-06-01] MEDS: CEPHALEXIN MONOHYDRATE 500 MG CAPSULE (UD) PO SCH ×4 (07:03→23:47)
[2021-06-01] MEDS: LEVOTHYROXINE NA 200 MCG TABLET PO SCH (07:04)
[2021-06-01] MEDS: CLOPIDOGREL BISULFATE 75 MG TABLET (FP) PO SCH (11:15)
[2021-06-01] MEDS: CALCIUM 500MG/VIT-D 200 UNITS COMBO TABLET (FP) PO SCH (11:15)
[2021-06-01] MEDS: PRENATAL VITAMINS W/ FOLIC ACID TABLET (FP) PO SCH (11:16)
[2021-06-01] MEDS: LIDOCAINE 5% TOPICAL PATCH TP SCH (11:29)
[2021-06-01] MEDS: PARoxetine HCL 10 MG TABLET PO SCH (11:40)
[2021-06-01] MEDS ORDERED: chlordiazePOXIDE HCL 10 MG CAPSULE PO SCH (17:00)
[2021-06-01] MEDS: LURASIDONE HCL 20 MG TABLET PO SCH (17:46)
[2021-06-01] MEDS: chlordiazePOXIDE 5 MG CAPSULE PO SCH ×2 (17:47→22:41)
[2021-06-01] MEDS: LIDOCAINE PATCH REMOVAL MC SCH (22:20)
[2021-06-01] MEDS: MELATONIN 5 MG TABLETS PO SCH (22:41)
[2021-06-01] MEDS: THIAMINE HCL 100 MG TABLET (FP) PO SCH (22:41)
[2021-06-01] MEDS: METHOCARBAMOL 500 MG TABLET PO PRN (22:43)
[2021-06-02] MEDS ORDERED: chlordiazePOXIDE HCL 10 MG CAPSULE PO SCH (05:00)
[2021-06-02] MEDS ORDERED: methaDONE HCL 40 MG DISPERSABLE TABLET PO ONE (06:00)
[2021-06-02] MEDS: LEVOTHYROXINE NA 100 MCG TABLET (FP) PO SCH (06:15)
[2021-06-02] MEDS: GABAPENTIN 300 MG CAPSULE PO SCH (06:15)
[2021-06-02] MEDS: chlordiazePOXIDE 5 MG CAPSULE PO SCH ×2 (06:16→18:01)
[2021-06-02] MEDS: CEPHALEXIN MONOHYDRATE 500 MG CAPSULE (UD) PO SCH ×4 (06:16→23:10)
[2021-06-02] MEDS: PRENATAL VITAMINS W/ FOLIC ACID TABLET (FP) PO SCH (11:04)
[2021-06-02] MEDS: PARoxetine HCL 10 MG TABLET PO SCH (11:04)
[2021-06-02] MEDS: CLOPIDOGREL BISULFATE 75 MG TABLET (FP) PO SCH (11:05)
[2021-06-02] MEDS: METHOCARBAMOL 500 MG TABLET PO PRN ×2 (11:05→18:01)
[2021-06-02] MEDS: CALCIUM 500MG/VIT-D 200 UNITS COMBO TABLET (FP) PO SCH (11:05)
[2021-06-02] MEDS: LIDOCAINE 5% TOPICAL PATCH TP SCH (11:06)
[2021-06-02] MEDS: LURASIDONE HCL 20 MG TABLET PO SCH (18:00)
[2021-06-02] MEDS: THIAMINE HCL 100 MG TABLET (FP) PO SCH (22:14)
[2021-06-02] MEDS: MELATONIN 5 MG TABLETS PO SCH (22:14)
[2021-06-02] MEDS: LIDOCAINE PATCH REMOVAL MC SCH (23:14)
[2021-06-03] MEDS ORDERED: methaDONE HCL 10 MG TABLET ONE (04:20)
[2021-06-03] MEDS ORDERED: methaDONE HCL 40 MG DISPERSABLE TABLET ONE (04:20)
[2021-06-03] MEDS ORDERED: chlordiazePOXIDE HCL 10 MG CAPSULE PO ONE (05:00)
[2021-06-03] MEDS ORDERED: chlordiazePOXIDE 5 MG CAPSULE PO ONE (05:00)
[2021-06-03] MEDS: CEPHALEXIN MONOHYDRATE 500 MG CAPSULE (UD) PO SCH ×3 (05:18→18:11)
[2021-06-03] MEDS ORDERED: methaDONE HCL 10 MG TABLET PO ONE (06:00)
[2021-06-03] MEDS ORDERED: methaDONE 40 MG, methaDONE 30 MG PO ONE ×2 (06:00)
[2021-06-03] MEDS: LEVOTHYROXINE NA 100 MCG TABLET (FP) PO SCH (08:02)
[2021-06-03] MEDS: LIDOCAINE 5% TOPICAL PATCH TP SCH (10:40)
[2021-06-03] MEDS: PARoxetine HCL 10 MG TABLET PO SCH (10:41)
[2021-06-03] MEDS: CLOPIDOGREL BISULFATE 75 MG TABLET (FP) PO SCH (10:41)
[2021-06-03] MEDS: CALCIUM 500MG/VIT-D 200 UNITS COMBO TABLET (FP) PO SCH (10:41)
[2021-06-03] MEDS: PRENATAL VITAMINS W/ FOLIC ACID TABLET (FP) PO SCH (10:41)
[2021-06-03] MEDS: NICOTINE 10 MG CARTRIDGE (INHALER) IH PRN ×2 (17:38→22:32)
[2021-06-03] MEDS: LURASIDONE HCL 20 MG TABLET PO SCH (17:49)
[2021-06-03] MEDS: METHOCARBAMOL 500 MG TABLET PO PRN (18:11)
[2021-06-03] MEDS: MELATONIN 5 MG TABLETS PO SCH (22:30)
[2021-06-03] MEDS: THIAMINE HCL 100 MG TABLET (FP) PO SCH (22:31)
[2021-06-03] MEDS: LIDOCAINE PATCH REMOVAL MC SCH (22:57)
[2021-06-04] MEDS: CEPHALEXIN MONOHYDRATE 500 MG CAPSULE (UD) PO SCH (01:44)
[2021-06-04] MEDS: NICOTINE 10 MG CARTRIDGE (INHALER) IH PRN (06:16)
[2021-06-04] MEDS: LEVOTHYROXINE NA 100 MCG TABLET (FP) PO SCH (07:06)
[2021-06-04] MEDS ORDERED: methaDONE HCL 10 MG TABLET PO ONE (08:33)
[2021-06-04] MEDS ORDERED: methaDONE 40 MG, methaDONE 30 MG PO ONE (08:45)
[2021-06-04] MEDS ORDERED: methaDONE HCL 10 MG TABLET ONE (08:55)
[2021-06-04] MEDS ORDERED: methaDONE HCL 40 MG DISPERSABLE TABLET ONE (08:55)
[2021-06-04 09:07] VITALS: BP 108/79; PULSE 63; TEMP 98
[2021-06-04] MEDS: METHOCARBAMOL 500 MG TABLET PO PRN (12:05)
[2021-06-04] MEDS: CALCIUM 500MG/VIT-D 200 UNITS COMBO TABLET (FP) PO SCH (12:05)
[2021-06-04] MEDS: CLOPIDOGREL BISULFATE 75 MG TABLET (FP) PO SCH (12:05)
[2021-06-04] MEDS: PARoxetine HCL 10 MG TABLET PO SCH (12:05)
[2021-06-04] MEDS: PRENATAL VITAMINS W/ FOLIC ACID TABLET (FP) PO SCH (12:05)
[2021-06-04] MEDS: LIDOCAINE 5% TOPICAL PATCH TP SCH (12:06)
[2021-06-04 14:08] LABS: SARS-CoV-2 NAA Not Detected (Not Detected)
== END 2021-06-04 13:00 | disposition other institution (70) | DRG 773 ==
LOC: YASAS 14:55 → Y6N 05-30 12:13
PROVIDERS: ADMIT Allergy & Immunology; ATTEND Allergy & Immunology
PROC: HZ2ZZZZ Detoxification Services for Substance Abuse Treatment (ICD-10-PCS; principal; 2021-05-30)
DX: F10.230 Alcohol dependence with withdrawal, uncomplicated (principal); F11.20 Opioid dependence, uncomplicated; F14.20 Cocaine dependence, uncomplicated; F17.210 Nicotine dependence, cigarettes, uncomplicated; F31.81 Bipolar II disorder; F19.24 Other psychoactive substance dependence with psychoactive substance-induced mood disorder; E58 Dietary calcium deficiency; I83.93 Asymptomatic varicose veins of bilateral lower extremities; J45.20 Mild intermittent asthma, uncomplicated; M54.50 Low back pain, unspecified; Z62.810 Personal history of physical and sexual abuse in childhood; E66.9 Obesity, unspecified; Z68.33 Body mass index [BMI] 33.0-33.9, adult; Z86.19 Personal history of other infectious and parasitic diseases
CPT/HCPCS: 36415; 80053; 82962; 83036; 85027; 86780; 90670; 93005; 93010; C9803-CS; U0003; U0005

== ENCOUNTER 2021-06-04 12:45 | Inpatient (IN) | payer OTHER ==
[2021-06-04] MEDS ORDERED: ALBUTEROL SO4 HFA INHALER IH PRN (14:44)
[2021-06-04] MEDS ORDERED: MAGNESIUM CITRATE 300 ML BOTTLE PO PRN (14:46)
[2021-06-04] MEDS ORDERED: BENZOCAINE/MENTHOL (CHLORASEPTIC ) LOZENGE MM PRN (14:46)
[2021-06-04] MEDS ORDERED: MAG HYDROX/AL HYDROX/SIMETH 30 ML UNIT-DOSE CUP PO PRN (14:46)
[2021-06-04] MEDS ORDERED: guaiFENesin 200 MG/10 ML 10 ML UNIT-DOSE CUPS PO PRN (14:46)
[2021-06-04] MEDS ORDERED: hydrOXYzine PAMOATE 25 MG CAPSULE (FP) PO PRN (14:46)
[2021-06-04] MEDS ORDERED: P-EPHED 60MG/TRIPROLIDI 2.5MG TABLET PO PRN (14:46)
[2021-06-04] MEDS ORDERED: LOPERAMIDE HCL 2 MG CAPSULE PO PRN (14:46)
[2021-06-04] MEDS ORDERED: MAGNESIUM HYDROX 2400MG/30ML ORAL SUSPENSION 30 ML CUP PO PRN (14:46)
[2021-06-04] MEDS ORDERED: IBUPROFEN 400 MG TABLET (FP) PO PRN (14:46)
[2021-06-04] MEDS: LIDOCAINE 5% TOPICAL PATCH TP SCH (16:04)
[2021-06-04] MEDS: THIAMINE HCL 100 MG TABLET (FP) PO SCH (21:49)
[2021-06-04] MEDS: MELATONIN 5 MG TABLETS PO SCH (21:49)
[2021-06-04] MEDS ORDERED: PATIENT'S OWN MEDICATION (NON-FORMULARY) (Lurasidone Hcl [Latuda] 60 MG Tablet) PO SCH (22:00)
[2021-06-04] MEDS: LIDOCAINE PATCH REMOVAL MC SCH (22:05)
[2021-06-05] MEDS: ACETAMINOPHEN 325 MG TABLET (FP) PO PRN (06:50)
[2021-06-05] MEDS ORDERED: methaDONE HCL 40 MG DISPERSABLE TABLET PO ONE (08:33)
[2021-06-05] MEDS: LEVOTHYROXINE NA 100 MCG TABLET (FP) PO SCH (09:01)
[2021-06-05] MEDS: NICOTINE 10 MG CARTRIDGE (INHALER) IH PRN (09:03)
[2021-06-05] MEDS ORDERED: PARoxetine HCL 10 MG TABLET PO SCH (10:00)
[2021-06-05] MEDS: CLOPIDOGREL BISULFATE 75 MG TABLET (FP) PO SCH (11:01)
[2021-06-05] MEDS: NICOTINE 7 MG/24 HOURS TOPICAL PATCH TD SCH (11:03)
[2021-06-05] MEDS: PRENATAL VITAMINS W/ FOLIC ACID TABLET (FP) PO SCH (11:04)
[2021-06-05] MEDS: LIDOCAINE 5% TOPICAL PATCH TP SCH (11:06)
[2021-06-05] MEDS: LISINOPRIL 20 MG TABLET PO SCH ×2 (12:42→22:12)
[2021-06-05] MEDS: CALCIUM 500MG/VIT-D 200 UNITS COMBO TABLET (FP) PO SCH (12:43)
[2021-06-05] MEDS: LIDOCAINE PATCH REMOVAL MC SCH (22:11)
[2021-06-05] MEDS: THIAMINE HCL 100 MG TABLET (FP) PO SCH (22:12)
[2021-06-05] MEDS: MELATONIN 5 MG TABLETS PO SCH (22:12)
[2021-06-06] MEDS ORDERED: methaDONE 40 MG, methaDONE 30 MG PO SCH (06:00)
[2021-06-06] MEDS ORDERED: methaDONE HCL 40 MG DISPERSABLE TABLET PO SCH (06:00)
[2021-06-06] MEDS ORDERED: methaDONE 80 MG, methaDONE 10 MG PO SCH (06:00)
[2021-06-06] MEDS ORDERED: methaDONE HCL 10 MG TABLET PO SCH (06:00)
[2021-06-06] MEDS: LEVOTHYROXINE NA 100 MCG TABLET (FP) PO SCH (07:02)
[2021-06-06] MEDS ORDERED: methaDONE HCL 10 MG TABLET ONE (09:25)
[2021-06-06] MEDS ORDERED: methaDONE HCL 40 MG DISPERSABLE TABLET ONE (09:26)
[2021-06-06] MEDS: PRENATAL VITAMINS W/ FOLIC ACID TABLET (FP) PO SCH (11:08)
[2021-06-06] MEDS: LISINOPRIL 20 MG TABLET PO SCH ×2 (11:08→22:17)
[2021-06-06] MEDS: methaDONE 40 MG, methaDONE 30 MG PO SCH (11:08)
[2021-06-06] MEDS: CLOPIDOGREL BISULFATE 75 MG TABLET (FP) PO SCH (11:08)
[2021-06-06] MEDS: LIDOCAINE 5% TOPICAL PATCH TP SCH (11:09)
[2021-06-06] MEDS: NICOTINE 7 MG/24 HOURS TOPICAL PATCH TD SCH (11:09)
[2021-06-06] MEDS: CALCIUM 500MG/VIT-D 200 UNITS COMBO TABLET (FP) PO SCH (11:09)
[2021-06-06] MEDS: LIDOCAINE PATCH REMOVAL MC SCH (22:17)
[2021-06-06] MEDS: THIAMINE HCL 100 MG TABLET (FP) PO SCH (22:18)
[2021-06-06] MEDS: ACETAMINOPHEN 325 MG TABLET (FP) PO PRN (22:21)
[2021-06-07] MEDS: LEVOTHYROXINE NA 100 MCG TABLET (FP) PO SCH (07:15)
[2021-06-07 07:28] VITALS: TEMP 96.2
[2021-06-07] MEDS ORDERED: methaDONE HCL 10 MG TABLET ONE (09:20)
[2021-06-07] MEDS ORDERED: methaDONE HCL 40 MG DISPERSABLE TABLET ONE (09:20)
[2021-06-07] MEDS: CLOPIDOGREL BISULFATE 75 MG TABLET (FP) PO SCH (10:53)
[2021-06-07] MEDS: LISINOPRIL 20 MG TABLET PO SCH (10:53)
[2021-06-07] MEDS: LIDOCAINE 5% TOPICAL PATCH TP SCH (10:53)
[2021-06-07] MEDS: PRENATAL VITAMINS W/ FOLIC ACID TABLET (FP) PO SCH (10:53)
[2021-06-07] MEDS: NICOTINE 7 MG/24 HOURS TOPICAL PATCH TD SCH (10:54)
[2021-06-07] MEDS: methaDONE 40 MG, methaDONE 30 MG PO SCH (10:54)
[2021-06-07] MEDS: CALCIUM 500MG/VIT-D 200 UNITS COMBO TABLET (FP) PO SCH (10:54)
[2021-06-07 11:09] VITALS: BP 143/79; PULSE 63
[2021-06-07] MEDS: NICOTINE 10 MG CARTRIDGE (INHALER) IH PRN (11:28)
== END 2021-06-07 20:00 | disposition left against medical advice (07) | DRG 770 ==
LOC: YASAS 12:45 → Y5N 12:50
PROVIDERS: ADMIT Allergy & Immunology; ATTEND Allergy & Immunology
PROC: HZ42ZZZ Group Counseling for Substance Abuse Treatment, Cognitive-Behavioral (ICD-10-PCS; principal; 2021-06-04)
DX: F10.20 Alcohol dependence, uncomplicated (principal); F14.20 Cocaine dependence, uncomplicated; F12.20 Cannabis dependence, uncomplicated; F17.210 Nicotine dependence, cigarettes, uncomplicated; F31.9 Bipolar disorder, unspecified; I10 Essential (primary) hypertension; E03.9 Hypothyroidism, unspecified; E66.9 Obesity, unspecified; Z68.33 Body mass index [BMI] 33.0-33.9, adult